=== PATIENT | female | born 1985 | race African-American/Black ===

== ENCOUNTER 2025-01-21 07:10 | Emergency (ER) | payer MEDICAID, OTHER ==
[~2025-01-21] VITALS: Ht 167.6 cm; Wt 72.7 kg
[2025-01-21 07:32] VITALS: BP 135/85; PULSE 88; RESP 20; TEMP 98; O2SAT 99
[2025-01-21] MEDS: KETOROLAC TROMETHAMINE 30 MG/ML VIAL IVP ONE (07:48)
[2025-01-21 07:49] LABS: PLATELET COUNT (AUTO) 386 K/uL (150-450); RED BLOOD CELL COUNT(AUTO) 3.32 MIL/uL (4.00-5.20); RED CELL DISTRIBUTION WIDTH 16.2 % (11.5-14.5); WHITE BLOOD COUNT (AUTO) 9.9 K/uL (4.5-11.0)
[2025-01-21] MEDS: ONDANSETRON HCL 4 MG/2 ML VIAL IVP ONE (07:49)
[2025-01-21 07:52] LABS: CALCIUM, TOTAL 8.5 mg/dL (8.8-10.5); CREATININE 0.88 mg/dL (0.60-1.30); GLOMERULAR FILTR. RATE CALC > 60 mL/min (>60); GLUCOSE,RANDOM 163 mg/dL (70-110); SODIUM SERUM 138 mmol/L (136-145); UREA NITROGEN, BLOOD 8 mg/dL (7-18)
[2025-01-21] MEDS: AMPICILLIN SODIUM/SULBACTAM NA 1.5 GM in SODIUM CHLORIDE 0.9% 50 ML IV ONE (07:57)
[2025-01-21] MEDS ORDERED: MUPI1OIN5 TP (09:12)
[2025-01-21] MEDS ORDERED: AMOX-457 PO (09:12)
[2025-01-21] MEDS ORDERED: DOXY-354 PO (09:12)
[2025-01-21] MEDS ORDERED: DIPH50CA37 PO (09:12)
[2025-01-21] MEDS ORDERED: ACET-2080 PO (09:12)
[2025-01-21] MEDS ORDERED: PRED-554 PO (09:12)
[2025-01-21] MEDS ORDERED: IBUP-1554 PO (09:12)
== END 2025-01-21 13:03 | disposition left against medical advice (07) ==
LOC: EMS 07:11
DX: K04.7 Periapical abscess without sinus (principal); T78.40XA Allergy, unspecified, initial encounter; L03.211 Cellulitis of face; F14.10 Cocaine abuse, uncomplicated; Z87.19 Personal history of other diseases of the digestive system; Z91.013 Allergy to seafood; Y92.89 Other specified places as the place of occurrence of the external cause
CPT/HCPCS: 99284; 96365; 96375; 80048; 84703; 85025; 36415; 84145; J1885; J2919; J0295; J1171; J2405; J7050